=== PATIENT | female | born 1940 | race Caucasian/White ===

== ENCOUNTER → 2017-06-02 | Outpatient (CLI) | payer OTHER ==
[~2017-06-02] MED LIST: ATORVASTATIN CA10 MG PO; CALCIUM 500 MG1 EACH PO; CILOSTAZOL100 MG PO; LEVEMIR FL100 UNIT/1 SC; LO-DOSE ASPIRIN81 M2 PO; LOSARTAN POTASS25 MG PO; METFORMIN HCL1000 MG PO; OMEPRAZOLE20 MG PO; ONGLYZA5 MG PO; PLAVIX75 MG PO
== END | disposition home or self-care (01) ==
LOC: EKG 09:10
DX: Z01.810 Encounter for preprocedural cardiovascular examination (principal); I44.4 Left anterior fascicular block; R94.31 Abnormal electrocardiogram [ECG] [EKG]
CPT/HCPCS: 93005